=== PATIENT | male | born 1995 | race Two or more races ===

== ENCOUNTER 2023-05-29 14:38 | Emergency (ER) | payer OTHER ==
[~2023-05-29] VITALS: Ht 175.3 cm; Wt 59.8 kg
[2023-05-29 15:15] VITALS: BP 128/73; PULSE 86; RESP 13; TEMP 98.9; O2SAT 99
[2023-05-29] MEDS ORDERED: IBUP-1454 PO (16:24)
[2023-05-29] MEDS ORDERED: METH-1181 PO (16:24)
== END 2023-05-29 16:25 | disposition home or self-care (01) ==
LOC: ER 14:38
DX: S39.012A Strain of muscle, fascia and tendon of lower back, initial encounter (principal); S63.613A Unspecified sprain of left middle finger, initial encounter; S63.502A Unspecified sprain of left wrist, initial encounter; W10.8XXA Fall (on) (from) other stairs and steps, initial encounter; Y93.89 Activity, other specified; Y92.89 Other specified places as the place of occurrence of the external cause; Y99.8 Other external cause status
CPT/HCPCS: 72100; 73110; 73130